=== PATIENT | female | born 1975 | race Caucasian/White ===

== ENCOUNTER → 2023-04-15 | Outpatient (CLI) | payer OTHER ==
--- NOTE | 2023-04-15 15:26 | NM ---
EXAMINATION TYPE: NM thyroid image only DATE OF EXAM: 04/15/2023 COMPARISON: NONE CLINICAL INDICATION: Female, 47 years old with history of E04.9 NONTOXIC GOITER, [id number] R22 .0; TECHNIQUE: After the intravenous administration of 10.1 mCi Tc 99m Sodium Pertechnetate. FINDINGS: There is a large area of increased uptake involving the mid and upper pole of the left thyroid with d iminished uptake in the remaining portion of the left lobe and diffusely diminished uptake within the right lobe. IMPRESSION: 1. Heterogeneous uptake as described above may represent an autonomously functioning nodule in the le ft lobe of the thyroid. Recommend follow-up ultrasound.
== END | disposition home or self-care (01) ==
LOC: RADNMMAIN 10:55
PROVIDERS: ATTEND Family Medicine
DX: E04.2 Nontoxic multinodular goiter (principal); R22.0 Localized swelling, mass and lump, head
CPT/HCPCS: 78013; A9512